=== PATIENT | female | born 1970 | race Caucasian/White ===

== ENCOUNTER 2016-09-09 15:21 | Inpatient (IN) | payer OTHER ==
[2016-09-09] MEDS: NORMAL SALINE 10 ML SYRINGE FLUSH IVP PRN ×2 (15:15→16:00)
[2016-09-09 15:43] LABS: BASOPHILS # (AUTO) 0.14 10*3/UL; BASOPHILS % (AUTO) 1.3 % (0-1); BILIRUBIN,URINE NEGATIVE (NEG); CLARITY,URINE CLEAR (CLEAR); EOSINOPHILS % (AUTO) 6.6 % (0-8); GLUCOSE, URINE (UA) NEGATIVE (NEG); HEMATOCRIT 42.3 % (37.0-47.0); HEMOGLOBIN 14.4 g/dL (12.0-16.0); IMM GRAN % (AUTO) 0.8 % (0-5); IMM GRAN# (AUTO) 0.09 10*3/UL; LEUKOCYTE ESTERASE ,URINE SMALL (NEG); LYMPHOCYTES # (AUTO) 3.05 10*3/uL; LYMPHOCYTES % (AUTO) 28.1 % (10-50); MEAN CORPUSCULAR HEMOGLOBIN 29.6 PG (27-31); MEAN PLATELET VOLUME 10.5 FL (7.4-12.2); MONOCYTES # (AUTO) 0.66 10*3/UL (0.3-0.8); MONOCYTES % (AUTO) 6.1 % (5-15); NEUTROPHILS # (AUTO) 6.21 10*3/UL; NEUTROPHILS % (AUTO) 57.1 % (50-80); NITRATE,URINE NEGATIVE (NEG); OCCULT BLOOD,URINE NEGATIVE (NEG); PH,URINE 5.5 (5.0-8.5); PROTEIN,URINE NEGATIVE (NEG); RDW COEFFICIENT OF VARIATION 13.6 % (11.5-14.5); RED BLOOD COUNT 4.87 10^6/uL (4.20-5.40); UROBILINOGEN,URINE 0.2 EU/dL (0.2); WHITE BLOOD COUNT 10.87 10^3/uL (4.8-10.8)
[2016-09-09 15:44] LABS: PLATELET MORPHOLOGY COMMENT NORMAL MORPHOLOGY (NORM)
[2016-09-09 15:47] LABS: ASPARTATE AMINO TRANSFERASE 38 IU/L (8-39); BILIRUBIN,TOTAL 0.7 mg/dL (0.3-1.2); BLOOD UREA NITROGEN 8 mg/dL (7-22); CHLORIDE 106 meq/L (98-112); CREATININE 0.8 mg/dL (0.50-1.20); EST GLOMERULAR FILTRATION > 60 (>60 ml/min/1.73m(2)); GLUCOSE 96 mg/dL (78-110); POTASSIUM 3.6 meq/L (3.8-5.2); SODIUM 141 meq/L (135-145); TOTAL PROTEIN 7.5 g/dL (6.1-8.0)
[2016-09-09 15:56] LABS: AMYLASE 84 U/L (30-110)
[2016-09-09] MEDS ORDERED: MORPHINE SULFATE 4 MG/1 ML IVP ONE (15:57)
[2016-09-09] MEDS ORDERED: Sodium Chloride 0.9% 1,000 ML PRIMARY IV ONE (15:57)
[2016-09-09 16:22] LABS: URINE SAMPLE TYPE CLEAN CATCH URINE
[2016-09-09 16:23] LABS: BACTERIA,URINE RARE; SQUAMOUS EPITHELIAL CELL,UR RARE
--- NOTE | 2016-09-09 16:52 | DI ---
History right-sided abdominal pain. Procedure: Examination performed with 75 cc Isovue 300 administered intravenously. Imaging was perfor med from the heart to the pubic symphysis. Findings: Both lung bases are unremarkable. No intra-abdominal free air identified. Heart is not enlarged. Dense calcifications anterior to the left-sided chest wall left breast, image 1/159, partially depicted, benign in appearance Liver unremarkable except for 2 tiny right hepatic lobe cysts. Spleen normal. No retroperitoneal or r etrocrural lymphadenopathy. Pancreas normal. Adrenal glands normal. Both kidneys function without mass stone or obstruction. Gallbladder unremarkable. Prior hysterectomy. Bladder normal. No diverticula seen. Some fecal retention noted in the right side of the colon. Ileocecal valve normal. Small bowel loops show no evidence of dilatation or wall thick ening. Some surgical clips noted in the region of the umbilicus. Regarding the appendix, it contains some air and measures 6 mm in diameter which is top normal. Signi ficantly, there is no periappendiceal wall thickening. Impression: Prior hysterectomy. Some surgical clips noted in the region of the umbilicus Appendix top normal in size without secondary evidence of inflammation. Patient may be monitored for objective evidence of inflammation or considered for repeat study in 24-48 hours. Review image 98/159 . 2 tiny hepatic cysts, no clinical significance. Large calcifications left-sided chest wall--possibly old calcified hematoma or associated prior breas t surgery. No evidence of soft tissue breast mass identified
[2016-09-09] MEDS ORDERED: Ciprofloxacin 400mg (Premix) 400 MG in Dextrose 1 BAG IV ONE (17:52)
[2016-09-09] MEDS ORDERED: HYDROmorphone 2 MG/1 ML IVP ONE (18:02)
[2016-09-09] MEDS ORDERED: CIPROFLOXACIN 400 MG IV ONE (18:03)
[2016-09-09] MEDS ORDERED: DEXTROSE IV ONE (18:04)
--- NOTE | 2016-09-09 18:11 | PDOC ---
History and Physical - History of Present Illness Date and Time of Service: 09/09/2016 Chief Complaint: Right lower quadrant pain History of Present Illness: This is a 45-year-old female who has a one-day history of right lower quadrant abdominal pain patient states that the pain started there. She is able go to work today but the pain is progressively getting worse. She states that is worse pain that she's had in a while. It hurts even to urinate. Patient's white count is at 10.87 with a normal differential. Her remainder of her labs are unremarkable. CT scan showed appendix that is 7 mm with no inflammatory changes around it. There is also some air seen within the appendix. Patient has no nausea vomiting diarrhea or constipation. No hematochezia hematemesis or melena. She denies fevers. Patient has had a bilateral salpingo-oophorectomy and a hysterectomy. Patient is status post TRAM flap because of her breast reconstruction Past Medical History Surgical History: Bilateral mastectomies with immediate reconstruction using TRAM flap. Bilateral salpingo-oophorectomy with hysterectomy Tobacco Use: Never Smoker Substance Use Type: None Medication / Allergies Home Medications: Home Medications Medication Instructions Recorded Confirmed Type Epinephrine [Epipen 2-Tom] 0.3 mg IM ONCE #1 ml 09/20/15 09/09/16 Clinic Dexlansoprazole [Dexilant] 1 tab PO DAILY #90 cap 04/29/16 09/09/16 Clinic Escitalopram Oxalate [Lexapro] 1 tab PO DAILY #30 tab 04/29/16 09/09/16 Clinic Fluticasone/Vilanterol [Breo 1 inh IH QD #1 unit 04/29/16 09/09/16 Clinic Ellipta 200-25 Mcg Inh] Gabapentin 1 cap PO QHS #30 cap 04/29/16 09/09/16 Clinic Montelukast Sodium 1 tab PO DAILY #30 tab 04/29/16 09/09/16 Clinic Triamcinolone Acetonide 1 applic TOPICAL BID PRN #30 gm 07/30/16 09/09/16 Clinic Allergies/Adverse Reactions: Allergies Allergy/AdvReac Type Severity Reaction Status Date / Time Penicillins Allergy Intermediate HIVES Verified 09/09/16 15:31 NSAIDS (Non-Steroidal Allergy Anaphylaxis Verified 09/09/16 15:31 Anti-Inflamma peanut Allergy ITCHING Verified 09/09/16 15:31 promethazine HCl Allergy NOT Verified 09/09/16 15:31 [From Phenergan] APPLICABLE Review of Systems - Review of Systems -: Patient has visual hearing problems. She has no cardiac disease. No respiratory illnesses. Has had the surgeries as stated above. She denies any visual hearing problems. Denies fevers. Denies diarrhea. Nausea vomiting. Denies pain with urination except the right lower quadrant. Review of systems otherwise unremarkable Exam - Vitals Vital Signs: Vital Signs Temperature 97.4 F Temperature Source Temporal Artery Scan Pulse Rate [Pulse Oximeter] 89 Respiratory Rate 18 Blood Pressure [Left Arm] 140/97 Pulse Ox 97 Oxygen Delivery Method Room Air Height 5 ft 2 in Weight 70.307 kg - General General Appearance: POSITIVE: No Acute Distress, Cooperative - Head Head Exam: POSITIVE: Normocephalic, Atraumatic - Eye Eye Exam: POSITIVE: PERRL, EOMI - Respiratory Respiratory Exam: POSITIVE: Breathing Non Labored - GI/Abdominal GI/Abdominal Exam: POSITIVE: Soft, No Masses, Positive for RUQ Pain, No Hepatomegaly, No Splenomegaly - Rectal Rectal Exam: POSITIVE: Deferred Results - Labs CBC and BMP: 09/09/16 15:39 09/09/16 15:39 Labs - Last 24 Hours: Laboratory Results 09/09/16 Range/Units 15:39 WBC 10.87 H (4.8-10.8) 10^3/uL RBC 4.87 (4.20-5.40) 10^6/uL Hgb 14.4 (12.0-16.0) g/dL Hct 42.3 (37.0-47.0) % MCV 86.9 (81-99) FL MCH 29.6 (27-31) PG MCHC 34.0 (33-37) g/dL RDW Std Deviation 42.2 (39-50) fL RDW Coeff of Rosa Elena 13.6 (11.5-14.5) % Plt Count 232 (140-350) 10*3/uL MPV 10.5 (7.4-12.2) FL Immature Gran % (Auto) 0.8 (0-5) % Neut % (Auto) 57.1 (50-80) % Lymph % (Auto) 28.1 (10-50) % Cross % (Auto) 6.1 (5-15) % Eos % (Auto) 6.6 (0-8) % Baso % (Auto) 1.3 H (0-1) % Immature Gran # (Auto) 0.09 10*3/UL Neut # (Auto) 6.21 10*3/UL Lymph # (Auto) 3.05 10*3/uL Cross # (Auto) 0.66 (0.3-0.8) 10*3/UL Eos # (Auto) 0.72 10*3/UL Baso # (Auto) 0.14 10*3/UL WBC Morphology Comment Normal morphology (NORM) Plt Morphology Comment Normal morphology (NORM) RBC Morph Comment Normal morphology (NORM) Sodium 141 (135-145) meq/L Potassium 3.6 L (3.8-5.2) meq/L Chloride 106 (98-112) meq/L Carbon Dioxide 23 (23-33) meq/L Anion Gap 12 (5-20) BUN 8 (7-22) mg/dL Creatinine 0.8 (0.50-1.20) mg/dL Estimated GFR > 60 (>60 ml/min/1.73m(2)) BUN/Creatinine Ratio 10.00 (6-20) Glucose 96 (78-110) mg/dL Calculated Osmolality 289.0 (267-292) mOsm/kg Calcium 9.0 (8.7-10.7) mg/dL Total Bilirubin 0.7 (0.3-1.2) mg/dL AST 38 (8-39) IU/L ALT 39 (9-52) IU/L Alkaline Phosphatase 112 (38-126) IU/L Total Protein 7.5 (6.1-8.0) g/dL Albumin 4.3 (3.5-4.8) g/dL Globulin 3.2 (2.50-4.10) g/dL Albumin/Globulin Ratio 1.30 (1.3-2.0) mg/g Amylase 84 (30-110) U/L Lipase 66 (23-300) IU/L Ur Collection Type Clean catch urine Urine Color Yellow Urine Clarity Clear (CLEAR) Urine pH 5.5 (5.0-8.5) Ur Specific [place] 1.010 (1.005-1.030) Urine Protein Negative (NEG) mg/dl Urine Glucose (UA) Negative (NEG) mg/dL Urine Ketones Negative (NEG) Urine Occult Blood Negative (NEG) Urine Nitrate Negative (NEG) Urine Bilirubin Negative (NEG) Urine Urobilinogen 0.2 (0.2) EU/dL Ur Leukocyte Esterase Small (NEG) Urine RBC 1-3 (NONE) /hpf Urine WBC 2-4 (NONE) Ur Squamous Epith Cells Rare (NONE) Ur Renal Epithelial Cell None (NONE) Urine Crystals None Urine Bacteria Rare (NONE) Urine Casts None (NONE) Urine Mucus None (NONE) Urine Trichomonas None (NONE) Urine Yeast None (NONE) Ur Culture Indicated? Culture not set Assessment and Plan - Patient Problems (1) Appendicitis Current Visit: Yes Status: Acute - Assessment / Plan Additional Assessment/Plan Details: I do believe the patient may have early appendicitis. I talked about the different options of treatment which include antibiotic therapy and surgery. I went over the differential diagnosis with her she understands and. She also understands advantages of each treatment option. Unique to miss Dickey's condition is that she does have mesh in with TRAM flap. If we did surgery and has a early appendicitis and pulling the appendix through the mesh could see bacteria into that mesh. Patient does understand this. But there is also some risk of systemically seeding bacteria into the mesh with nonoperative management. I think the latter is a lower Risk. Patient also was informed that there is only a 1% chance of rupture with treating with antibiotics. Also there is only roughly 30% chance of the needed an appendectomy a later date. Patient and her have considered her options and would like to start out with antibiotic therapy. Because of her severe penicillin allergy we will put her on Cipro and Flagyl. Patient be admitted to the hospital.
[2016-09-09] MEDS ORDERED: ONDANSETRON 4 MG/2 ML VIAL IVP PRN (19:00)
[2016-09-09] MEDS ORDERED: NORMAL SALINE 10 ML SYRINGE FLUSH IVP PRN (19:00)
[2016-09-09] MEDS ORDERED: NALOXONE 0.4 MG/1 ML VIAL IVP PRN (19:00)
[2016-09-09] MEDS: D5-1/2NS 1,000 ML PRIMARY IV SCH (19:50)
[2016-09-09] MEDS: MORPHINE SULFATE 2 MG/1 ML IVP PRN ×2 (20:23→22:35)
[2016-09-09] MEDS: metroNIDAZOLE 500mg (Premix) 500 MG in Premix 1 BAG IV SCH (20:25)
[2016-09-09] MEDS: Ciprofloxacin 400mg (Premix) 400 MG in Dextrose 1 BAG IV SCH (21:45)
[2016-09-09] MEDS ORDERED: Montelukast Tab 10 MG TAB PO SCH (22:15)
[2016-09-10 01:12] VITALS: RESP 16
[2016-09-10] MEDS: MORPHINE SULFATE 2 MG/1 ML IVP PRN ×4 (02:01→09:13)
--- NOTE | 2016-09-10 02:41 | PDOC ---
Abdomen/Flank HPI - General Chief Complaint: Abdomen Pain Stated Complaint: right lower quadrant abdominal pain Date Seen by Provider: 09/09/16 Time Seen by Provider: 15:45 Source: POSITIVE: Patient, Spouse Exam Limitations: POSITIVE: No limitations Nurse's Notes Reviewed & Considered: Yes - History of Present Illness Initial Comments: The patient is a 45 year old female. Around 10 PM last night she began to develop right-sided abdominal pain. She states her pain has been worse since 8 AM this morning. She states she last ate at 11:30 AM and had some chicken noodle soap. She's been nauseated but has not had any vomiting. No known fevers. No melena, hematochezia, hematemesis, dysuria or hematuria. Patient has had a hysterectomy with associated bilateral salpingo-oophorectomy. She has a history of breast cancer and had a breast reconstruction in 2003. She's also had sinus surgery and surgery to her right knee. History of asthma. Body Location Affected: REPORTS: Abdomen Timing: REPORTS: Gradual, Getting Worse Duration: <24 hours (Approximately 17 hours) Severity: Moderate Quality: REPORTS: "Pain" Abdominal Pain Onset Location: REPORTS: RLQ Abdominal Pain Radiation: REPORTS: No radiation Context: REPORTS: None Modifying Factors: improves with: Palpation Associated Symptoms: REPORTS: Denies symptoms, Nausea Similar Symptoms Previously: No Recent Care Received: REPORTS: Denies Any Prior Injuries Related to Current Complaint?: No - Patient Home Medications Home Medications: Home Medications Epinephrine [Epipen 2-Tom] 0.3 mg IM ONCE #1 ml 09/20/15 Dexlansoprazole [Dexilant] 1 tab PO DAILY #90 cap 04/29/16 Escitalopram Oxalate [Lexapro] 1 tab PO DAILY #30 tab 04/29/16 Fluticasone/Vilanterol [Breo Ellipta 200-25 Mcg Inh] 1 inh IH QD #1 unit Gabapentin 1 cap PO QHS #30 cap 04/29/16 Montelukast Sodium 1 tab PO DAILY #30 tab 04/29/16 Triamcinolone Acetonide 1 applic TOPICAL BID PRN #30 gm 07/30/16 - Patient Allergies Allergies/Adverse Reactions: Allergies Allergy/AdvReac Type Severity Reaction Status Date / Time Penicillins Allergy Intermediate HIVES Verified 09/09/16 19:17 NSAIDS (Non-Steroidal Allergy Anaphylaxis Verified 09/09/16 19:17 Anti-Inflamma peanut Allergy ITCHING Verified 09/09/16 19:17 promethazine HCl Allergy NOT Verified 09/09/16 19:17 [From Phenergan] APPLICABLE Past Medical History - heen HEENT History: Denies History Additional HEENT History: Chronic sinus Cardiovascular History: Denies History Respiratory History: Asthma, Other (please comment) Additional Respiratory History: 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 High esphiop numbers Psychiatric History: Denies History History of Sexually Transmitted Diseases: No Female Reproductive History: Hysterectomy Obstetrical History: Denies History Cancer History: Breast Cancer Treatment / Date(s) of Treatment: 2003 Mastectomy and reconstruction In Past Year Been Physically Harmed or Verbally Threatened: No History of MDRO: No History of Other Communicable Diseases: No Tobacco Use: Never Smoker Alcohol Use: None Substance Use Type: None Previous Surgical History: Yes Type / Date of Surgery: LEFT SIDE MASTECTOMYBREAST RECONSTRUCTIONRIGHT KNEE SURGERYTOTAL HYST Anesthesia Reactions: No Malignant Hyperthermia: No Significant Family History: No pertinent family hx Past Medical History Reviewed: Reviewed - No Changes ROS - Limitations ROS Limitations: No Limitations Constitution: REPORTS: Denies Symptoms Cardiovascular: REPORTS: Denies Cardiac Symptoms Respiratory: REPORTS: Denies Resp Symptoms Neurological: REPORTS: Denies Neuro Symptoms Gastrointestinal: REPORTS: Abdominal Pain, Nausea Endocrine: REPORTS: Denies Symptoms Musculoskeletal: REPORTS: Denies MS Symptoms Genitourinary: REPORTS: Denies Symptoms Eyes: REPORTS: Denies Symptoms ENT: REPORTS: Denies Symptoms Skin: REPORTS: Denies Skin Symptoms Lympathic: REPORTS: Denies Lympathic Symptoms Immunologic: POSITIVE: Denies Symptoms Psychiatric: POSITIVE: Denies Psych Symptoms Abdominal/Flank Pain PE - General Appearance General Appearance: POSITIVE: Alert, Cooperative, No Acute Distress, No Evidence of Trauma - Neck Neck: POSITIVE: Normal Inspection, No Apparent Injury - Respiratory Respiratory: POSITIVE: No Respiratory Distress, Breath Sounds Normal, Chest Non- Tender - Cardiovascular Cardiovascular: POSITIVE: Regular Rate and Rhythm, Heart Sounds Normal, Equal Pulses, Strong Pulses Peripheral Pulses: Radial (R): 2+, Radial (L): 2+ - Chest Chest: POSITIVE: Non Tender - Abdomen Abdomen: Soft: (RUQ), (LUQ), (LLQ), Normal Bowel Sounds: (All Quadrants), Denies Tenderness: (RUQ), (LUQ), (LLQ), No Splenomegaly: (All Quadrants), No Hepatomegaly: (All Quadrants), No Guarding: (All Quadrants), No Rebound: (All Quadrants), No Palpable Pulse: (All Quadrants), No Palpabale Mass: (All Quadrants), No Distention: (All Quadrants), No Rigidity: (All Quadrants), Tenderness Noted: (RLQ) Additional Abdominal Details: Abdominal examination shows bowel sounds to be active. Patient has pain on palpation over the right lower quadrant. No masses or organomegaly. Equivocal rebound right lower quadrant. - Back Back: POSITIVE: Normal Inspection - Skin Skin: POSITIVE: Intact, Normal For Race, Warm, Dry, No Rash - Extremities Extremity: Non-Tender: (All Extremities), Normal ROM: (All Extremities), Normal Inspection: (All Extremities) - Neurological Neurological: POSITIVE: Oriented X3, platen builder up Normal As Tested, Motor Normal, Sensation Normal, 5, 6 - Psychological Psychiatric: POSITIVE: Affect Appropriate, Mood Appropriate Images - Complete Complete: 1 - Pain on palpation Abdomen Progress - Results Reviewed by me Xrays/CTs/US Reviewed by me: Yes Discussed with Radiologist: Yes Radiology Findings: CT scan abdomen and pelvis with IV contrast shows some air in the appendix. The appendix measures 6 mm in diameter which is at the upper limits of normal. Lab Results Reviewed: Yes Lab Results:: Laboratory Results 09/09/16 Range/Units 15:39 WBC 10.87 H (4.8-10.8) 10^3/uL RBC 4.87 (4.20-5.40) 10^6/uL Hgb 14.4 (12.0-16.0) g/dL Hct 42.3 (37.0-47.0) % MCV 86.9 (81-99) FL MCH 29.6 (27-31) PG MCHC 34.0 (33-37) g/dL RDW Std Deviation 42.2 (39-50) fL RDW Coeff of Rosa Elena 13.6 (11.5-14.5) % Plt Count 232 (140-350) 10*3/uL MPV 10.5 (7.4-12.2) FL Immature Gran % (Auto) 0.8 (0-5) % Neut % (Auto) 57.1 (50-80) % Lymph % (Auto) 28.1 (10-50) % [place] % (Auto) 6.1 (5-15) % Eos % (Auto) 6.6 (0-8) % Baso % (Auto) 1.3 H (0-1) % Immature Gran # (Auto) 0.09 10*3/UL Neut # (Auto) 6.21 10*3/UL Lymph # (Auto) 3.05 10*3/uL [place] # (Auto) 0.66 (0.3-0.8) 10*3/UL Eos # (Auto) 0.72 10*3/UL Baso # (Auto) 0.14 10*3/UL WBC Morphology Comment Normal morphology (NORM) Plt Morphology Comment Normal morphology (NORM) RBC Morph Comment Normal morphology (NORM) Sodium 141 (135-145) meq/L Potassium 3.6 L (3.8-5.2) meq/L Chloride 106 (98-112) meq/L Carbon Dioxide 23 (23-33) meq/L Anion Gap 12 (5-20) BUN 8 (7-22) mg/dL Creatinine 0.8 (0.50-1.20) mg/dL Estimated GFR > 60 (>60 ml/min/1.73m(2)) BUN/Creatinine Ratio 10.00 (6-20) Glucose 96 (78-110) mg/dL Calculated Osmolality 289.0 (267-292) mOsm/kg Calcium 9.0 (8.7-10.7) mg/dL Total Bilirubin 0.7 (0.3-1.2) mg/dL AST 38 (8-39) IU/L ALT 39 (9-52) IU/L Alkaline Phosphatase 112 (38-126) IU/L Total Protein 7.5 (6.1-8.0) g/dL Albumin 4.3 (3.5-4.8) g/dL Globulin 3.2 (2.50-4.10) g/dL Albumin/Globulin Ratio 1.30 (1.3-2.0) mg/g Amylase 84 (30-110) U/L Lipase 66 (23-300) IU/L Ur Collection Type Clean catch urine Urine Color Yellow Urine Clarity Clear (CLEAR) Urine pH 5.5 (5.0-8.5) Ur Specific [place] 1.010 (1.005-1.030) Urine Protein Negative (NEG) mg/dl Urine Glucose (UA) Negative (NEG) mg/dL Urine Ketones Negative (NEG) Urine Occult Blood Negative (NEG) Urine Nitrate Negative (NEG) Urine Bilirubin Negative (NEG) Urine Urobilinogen 0.2 (0.2) EU/dL Ur Leukocyte Esterase Small (NEG) Urine RBC 1-3 (NONE) /hpf Urine WBC 2-4 (NONE) Ur Squamous Epith Cells Rare (NONE) Ur Renal Epithelial Cell None (NONE) Urine Crystals None Urine Bacteria Rare (NONE) Urine Casts None (NONE) Urine Mucus None (NONE) Urine Trichomonas None (NONE) Urine Yeast None (NONE) Ur Culture Indicated? Culture not set - Patient's Progress Pain Medication Addressed: POSITIVE: Yes (Morphine sulfate, 4 mg IV) School/Work Release Addressed: POSITIVE: Not Applicable Re-examine Time: 17:10 Status: POSITIVE: Unchanged, Re-Examined - Consult Consult (If Yes, Name of Consulting MD & Time Called): Yes (Dr. Maguire, surgeon, [id number]) Consulting MD will see pt:: POSITIVE: In ED, [facility] [place]mit Counseled: POSITIVE: Patient, Family, RE: Lab Results, RE: Radiology Results, RE : DX, RE: Need for F/U Patient Care Time - Estimated PCT Patient Care Time (In Minutes): 50 Vital Signs - Recent Vital Signs Vital Signs: Vital Signs (Last 8 hours) Temp Pulse Pulse Resp BP BP Pulse Ox 09/10/16 01:00 97.3 F 73 16 105/70 98 09/09/16 21:00 97.8 F 79 18 122/85 98 09/09/16 19:41 97.2 F 75 16 144/100 98 09/09/16 19:00 16 09/09/16 18:55 97.7 F 80 20 140/97 97 - VS Reviewed Vital Signs Reviewed: Yes Discharge Clinical Impression: Abdominal pain Discharge Disposition: Admit to Inpatient Condition: Stable Date Decision to Admit to Inpatient: 09/09/16 Time Decision to Admit to Inpatient: 17:15
[2016-09-10] MEDS: metroNIDAZOLE 500mg (Premix) 500 MG in Premix 1 BAG IV SCH (03:08)
[2016-09-10 05:55] LABS: BASOPHILS # (AUTO) 0.06 10*3/UL; BASOPHILS % (AUTO) 0.6 % (0-1); EOSINOPHILS % (AUTO) 4.4 % (0-8); HEMATOCRIT 39.4 % (37.0-47.0); IMM GRAN % (AUTO) 0.6 % (0-5); IMM GRAN# (AUTO) 0.06 10*3/UL; LYMPHOCYTES # (AUTO) 2.37 10*3/uL; LYMPHOCYTES % (AUTO) 25.1 % (10-50); MEAN CORPUSCULAR HEMOGLOBIN 29.1 PG (27-31); MEAN PLATELET VOLUME 10.2 FL (7.4-12.2); MONOCYTES # (AUTO) 0.54 10*3/UL (0.3-0.8); MONOCYTES % (AUTO) 5.7 % (5-15); NEUTROPHILS # (AUTO) 6.01 10*3/UL; NEUTROPHILS % (AUTO) 63.6 % (50-80); RDW COEFFICIENT OF VARIATION 13.4 % (11.5-14.5); RED BLOOD COUNT 4.46 10^6/uL (4.20-5.40); WHITE BLOOD COUNT 9.46 10^3/uL (4.8-10.8)
[2016-09-10 05:57] LABS: PLATELET MORPHOLOGY COMMENT NORMAL MORPHOLOGY (NORM)
[2016-09-10 06:01] LABS: BLOOD UREA NITROGEN 8 mg/dL (7-22); CALCIUM 8.4 mg/dL (8.7-10.7); CHLORIDE 107 meq/L (98-112); CREATININE 0.8 mg/dL (0.50-1.20); EST GLOMERULAR FILTRATION > 60 (>60 ml/min/1.73m(2)); GLUCOSE 124 mg/dL (78-110); SODIUM 141 meq/L (135-145)
[2016-09-10 06:17] LABS: POTASSIUM 3.8 meq/L (3.8-5.2)
[2016-09-10] MEDS: Ciprofloxacin 400mg (Premix) 400 MG in Dextrose 1 BAG IV SCH (07:01)
[2016-09-10 07:05] VITALS: TEMP 97.4
[2016-09-10] MEDS: D5-1/2NS 1,000 ML PRIMARY IV SCH (09:13)
--- NOTE | 2016-09-10 10:54 | DCSUMMARY ---
Discharge Summary Admit Date: 09/09/16 Discharge Date: 09/10/16 Admitting Diagnosis: right lower quadrant abdominal pain; acute appendicitis Discharge Diagnosis: #1 right lower quadrant abdominal pain. #2 appendicitis Hospital Course: This is a 42-year-old female comes in with acute onset of right lower quadrant abdominal pain. Pain is progressively got more severe. Patient remained afebrile. Patient's white count initially was only 10.87 CT scan showed no comparison appendiceal inflammatory condition appendix is only 6 mm. He was felt that the dosages the patient was treated with antibiotics versus doing surgery. She was started on Cipro and Flagyl. Next morning after 1 dose of her antibiotics white count was very back down to the 9.8 range. She states that the pain was actually getting better. She remained afebrile. This fell she can be discharged to home. She'll be on Cipro and Flagyl for 10 days. She is to hold her Lexapro since it can cause an adverse reaction with Cipro. Condition on discharge is improved Exam - Vitals Vital Signs: Vital Signs Temperature 97.4 F Temperature Source Temporal Artery Scan Pulse Rate [Pulse Oximeter] 66 Pulse Rate 80 Respiratory Rate 16 Blood Pressure [Left Arm] 103/68 Blood Pressure 140/97 Pulse Ox 95 Oxygen Flow Rate 2 Oxygen Delivery Method Room Air Height 5 ft 2 in Weight 72.802 kg - Respiratory Respiratory Exam: POSITIVE: Breathing Non Labored - GI/Abdominal GI/Abdominal Exam: POSITIVE: Non Distended, Soft, Positive for RUQ Pain Patient Problems - Patient Problem List (1) Appendicitis Current Visit: Yes Status: Acute
[2016-09-10] MEDS ORDERED: Montelukast Tab 10 MG TAB PO SCH (21:00)
== END 2016-09-10 12:04 | disposition home or self-care (01) | DRG 395 ==
LOC: ER 15:21 → MED/SURG 17:59
PROVIDERS: ADMIT Surgery; ATTEND Surgery
DX: K35.80 Unspecified acute appendicitis (principal)
CPT/HCPCS: 36415; 74177; 80048; 80053; 81001; 81003; 82150; 83690; 85025; 96361; 96374; 99284; J0744; J1170; J2270; J2405; J3490; J7030

== ENCOUNTER 2016-12-23 23:42 | Emergency (ER) | payer OTHER ==
[2016-12-23] MEDS ORDERED: EPINEPHrine Inj (1:1,000) 1 mg/ml amp IM ONE (23:48)
[2016-12-23] MEDS ORDERED: Famotidine Inj 20 MG in Normal Saline Flush 10 ML IVP ONE (23:48)
[2016-12-23] MEDS ORDERED: NORMAL SALINE 10 ML SYRINGE FLUSH IVP PRN (23:48)
[2016-12-23] MEDS ORDERED: methylPREDNISolone 125 MG/2 ML VIAL IVP ONE (23:48)
[2016-12-23] MEDS ORDERED: diphenhydrAMINE 50 MG/1 ML VIAL IVP ONE (23:48)
[2016-12-23] MEDS ORDERED: EPINEPHrine Inj (1:1,000) 1 mg/ml amp ONE (23:48)
[2016-12-23] MEDS ORDERED: Sodium Chloride 0.9% 1,000 ML PRIMARY IV ONE (23:48)
[2016-12-23] MEDS ORDERED: methylPREDNISolone 125 MG/2 ML VIAL ONE (23:50)
[2016-12-23] MEDS ORDERED: FAMOTIDINE 20 MG/2 ML VIAL IVP ONE (23:50)
[2016-12-23] MEDS ORDERED: diphenhydrAMINE 50 MG/1 ML VIAL ONE (23:50)
[2016-12-23] MEDS ORDERED: Sodium Chloride 0.9% 0 ML IV ONE (23:50)
[2016-12-23] MEDS ORDERED: Sodium Chloride 0.9% 1,000 ML ONE (23:50)
[2016-12-23 23:54] LABS: BASOPHILS # (AUTO) 0.12 10*3/UL; BASOPHILS % (AUTO) 0.8 % (0-1); EOSINOPHILS # (AUTO) 0.76 10*3/UL; EOSINOPHILS % (AUTO) 5.3 % (0-8); HEMATOCRIT 42.9 % (37.0-47.0); HEMOGLOBIN 14.8 g/dL (12.0-16.0); LYMPHOCYTES # (AUTO) 5.29 10*3/uL; MEAN CORPUSCULAR HEMOGLOBIN 29.7 PG (27-31); MEAN CORPUSCULAR HGB CONC 34.5 g/dL (33-37); MEAN CORPUSCULAR VOLUME 86.1 FL (81-99); MEAN PLATELET VOLUME 10.1 FL (7.4-12.2); MONOCYTES # (AUTO) 0.89 10*3/UL (0.3-0.8); MONOCYTES % (AUTO) 6.2 % (5-15); NEUTROPHILS # (AUTO) 7.05 10*3/UL; NEUTROPHILS % (AUTO) 49.6 % (50-80); RED BLOOD COUNT 4.98 10^6/uL (4.20-5.40)
[2016-12-23 23:57] LABS: PLATELET MORPHOLOGY COMMENT NORMAL MORPHOLOGY (NORM); RBC MORPHOLOGY COMMENT NORMAL MORPHOLOGY (NORM); WBC MORPHOLOGY COMMENT NORMAL MORPHOLOGY (NORM)
[2016-12-24 00:08] LABS: BLOOD UREA NITROGEN 13 mg/dL (7-22); BUN/CREATININE RATIO 16.25 (6-20); CALCIUM 9.1 mg/dL (8.7-10.7); EST GLOMERULAR FILTRATION > 60 (>60 ml/min/1.73m(2)); SERUM ALBUMIN 4.1 g/dL (3.5-4.8)
--- NOTE | 2016-12-24 00:20 | PDOC ---
Allergy Symptoms HPI - General Chief Complaint: Allergic Reaction/Anaphylaxis Stated Complaint: ALLERGIC REACTION Date Seen by Provider: 12/23/16 Time Seen by Provider: 23:45 Source: POSITIVE: Patient Exam Limitations: POSITIVE: No limitations Nurse's Notes Reviewed & Considered: Yes - History of Present Illness Initial Comments: The patient is a 46-year-old female who presents to the emergency department with an allergic reaction. She states that she was at home and had gotten out of the shower when she had sudden onset of burning in her skin and swelling on her lips and tongue. She states that her throat felt tight almost immediately. She does have a history of significant allergic reactions and anaphylaxis. Her main known trigger is NSAIDs and aspirin although she has had reactions in the past of unclear etiology. She denies any new foods or medications or any new soap. She does have an EpiPen at home and used it just prior to coming to the ER. She states that her symptoms are easing slightly however she still has some swelling of her lips and tongue and some tightness in her throat as well as generalized itching and swelling. She has considerable swelling in her hands. - Patient Home Medications Home Medications: Home Medications Epinephrine [Epipen 2-Tom] 0.3 mg IM ONCE #1 ml 09/20/15 Gabapentin 1 cap PO QHS #30 cap 04/29/16 Triamcinolone Acetonide 1 applic TOPICAL BID PRN #30 gm 07/30/16 Dexlansoprazole [Dexilant] 1 tab PO DAILY #90 cap 12/01/16 Escitalopram Oxalate [Lexapro] 1 tab PO DAILY #30 tab 12/01/16 Fluticasone Propionate 2 spray NS QD 12/01/16 Fluticasone/Vilanterol [Breo Ellipta 200-25 Mcg Inh] 1 inh IH QD #1 unit Montelukast Sodium 1 tab PO DAILY #30 tab 12/01/16 Epinephrine [Epipen 2-Tom] 0.3 mg IJ ONCE #1 pkg 12/24/16 predniSONE Tab [Deltasone Tab] 40 mg PO DAILY #10 tab 12/24/16 - Patient Allergies Allergies/Adverse Reactions: Allergies Allergy/AdvReac Type Severity Reaction Status Date / Time Penicillins Allergy Intermediate HIVES Verified 12/24/16 00:14 NSAIDS (Non-Steroidal Allergy Anaphylaxis Verified 12/24/16 00:14 Anti-Inflamma peanut Allergy ITCHING Verified 12/24/16 00:14 promethazine HCl Allergy NOT Verified 12/24/16 00:14 [From Phenergan] APPLICABLE Past Medical History - heen HEENT History: Denies History Additional HEENT History: Chronic sinus Cardiovascular History: Denies History Respiratory History: Asthma, Other (please comment) 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 High esphiop numbers Psychiatric History: Denies History History of Sexually Transmitted Diseases: No Cancer History: Breast Cancer Treatment / Date(s) of Treatment: 2003 Mastectomy and reconstruction History of MDRO: No History of Other Communicable Diseases: No Alcohol Use: None Substance Use Type: None Previous Surgical History: Yes Type / Date of Surgery: LEFT SIDE MASTECTOMYBREAST RECONSTRUCTIONRIGHT KNEE SURGERYTOTAL HYST Anesthesia Reactions: No Malignant Hyperthermia: No Significant Family History: No pertinent family hx Past Medical History Reviewed: Reviewed - No Changes ROS - Limitations ROS Limitations: No Limitations Constitution: DENIES: Chills, Fever Cardiovascular: REPORTS: Denies Cardiac Symptoms Respiratory: DENIES: Shortness Of Breath, Wheezing Neurological: REPORTS: Denies Neuro Symptoms Gastrointestinal: REPORTS: Denies GI Symptoms Musculoskeletal: REPORTS: Denies MS Symptoms Eyes: REPORTS: Denies Symptoms ENT: REPORTS: Denies Symptoms Skin: REPORTS: Rash (Generalized itching and erythema) Allergy Symptoms Physical Exam - General Appearance General Appearance: POSITIVE: Alert, Cooperative, No Acute Distress, Anxious - HEENT Head / Face: POSITIVE: Other (She does have swelling of her lips as well as some periorbital swelling, she has diffuse erythema on her entire face and neck) Eyes: POSITIVE: Other (Some periorbital swelling) Ears: POSITIVE: Ears Normal Inspection Nose: POSITIVE: Inspection Normal Oropharynx: POSITIVE: Other (She does have some swelling of both her upper and lower lips as well as her tongue) - Neck Neck: POSITIVE: Other (Generalized erythema on her neck) - Respiratory Respiratory: POSITIVE: No Respiratory Distress, Breath Sounds Normal. NEGATIVE : Wheezes - Cardiovascular Cardiovascular: POSITIVE: Regular Rate and Rhythm, Heart Sounds Normal Peripheral Pulses: Radial (R): 2+, Radial (L): 2+ - Abdomen Abdomen: Soft: (All Quadrants), No Distention: (All Quadrants) - Skin Skin: POSITIVE: Other (She has diffuse erythema on her extremities, swelling is fairly significant in her hands) - Extremities Additional Extremities Details: Significant hand swelling - Neurological / Psychological Neurological: POSITIVE: Other (No focal neurologic deficits) Allergy Symptoms Progress - Results Reviewed by Me Lab Results Reviewed: Yes Lab Results:: Laboratory Results 12/23/16 Range/Units 23:50 WBC 14.25 H (4.8-10.8) 10^3/uL RBC 4.98 (4.20-5.40) 10^6/uL Hgb 14.8 (12.0-16.0) g/dL Hct 42.9 (37.0-47.0) % MCV 86.1 (81-99) FL MCH 29.7 (27-31) PG MCHC 34.5 (33-37) g/dL RDW Std Deviation 42.7 (39-50) fL RDW Coeff of Rosa Elena 13.7 (11.5-14.5) % Plt Count 242 (140-350) 10*3/uL MPV 10.1 (7.4-12.2) FL Immature Gran % (Auto) 1.0 (0-5) % Neut % (Auto) 49.6 L (50-80) % Lymph % (Auto) 37.1 (10-50) % [place] % (Auto) 6.2 (5-15) % Eos % (Auto) 5.3 (0-8) % Baso % (Auto) 0.8 (0-1) % Immature Gran # (Auto) 0.14 10*3/UL Neut # (Auto) 7.05 10*3/UL Lymph # (Auto) 5.29 10*3/uL [place] # (Auto) 0.89 H (0.3-0.8) 10*3/UL Eos # (Auto) 0.76 10*3/UL Baso # (Auto) 0.12 10*3/UL WBC Morphology Comment Normal morphology (NORM) Plt Morphology Comment Normal morphology (NORM) RBC Morph Comment Normal morphology (NORM) Sodium 141 (135-145) meq/L Potassium 3.9 (3.8-5.2) meq/L Chloride 107 (98-112) meq/L Carbon Dioxide 18 L (23-33) meq/L Anion Gap 16 (5-20) BUN 13 (7-22) mg/dL Creatinine 0.8 (0.50-1.20) mg/dL Estimated GFR > 60 (>60 ml/min/1.73m(2)) BUN/Creatinine Ratio 16.25 (6-20) Glucose 141 H (78-110) mg/dL Calculated Osmolality 293.0 H (267-292) mOsm/kg Calcium 9.1 (8.7-10.7) mg/dL Total Bilirubin 0.7 (0.3-1.2) mg/dL AST 27 (8-39) IU/L ALT 37 (9-52) IU/L Alkaline Phosphatase 108 (38-126) IU/L Total Protein 7.1 (6.1-8.0) g/dL Albumin 4.1 (3.5-4.8) g/dL Globulin 3.0 (2.50-4.10) g/dL Albumin/Globulin Ratio 1.30 (1.3-2.0) mg/g - Patient's Progress MDM / ED Course: The patient had already given herself an adult EpiPen prior to coming to the emergency room. She still is having significant allergic reaction here in the ER. She received a second dose of epinephrine 0.3 mg IM after an IV was established. She also received Benadryl 50 mg IV and Pepcid 20 mg IV and Solu- Medrol 125 mg IV. Her allergic reaction settled down fairly quickly. The erythema on her skin dissipated and the swelling on her lips and tongue resolved. She was feeling significantly better. She'll be discharged home on prednisone 40 mg daily for 5 days. She will continue Benadryl. She was also given a prescription to get her EpiPen refilled. She'll follow-up with primary care if continued symptoms in 2-3 days. Return to the emergency room if any worsening reaction or difficulty breathing. - Consult Counseled: POSITIVE: Patient, RE: Lab Results, RE: DX, RE: Need for F/U Patient Care Time - Estimated PCT Patient Care Time (In Minutes): 25 Vital Signs - Recent Vital Signs Vital Signs: Vital Signs (Last 8 hours) Temp Pulse Resp BP Pulse Ox 12/23/16 23:45 97.2 F 105 H 24 148/107 95 - VS Reviewed Vital Signs Reviewed: Yes Discharge Clinical Impression: Allergic reaction Discharge Disposition: Discharged to Home Condition: Stable Prescriptions / Orders: predniSONE Tab [Deltasone Tab] 40 mg PO DAILY #10 tab Epinephrine [Epipen 2-Tom] 0.3 mg IJ ONCE #1 pkg Patient Instructions Given at Discharge: Anaphylaxis (ED) Additional Instructions: Prednisone 40 mg daily for 5 days. Continue Benadryl 25-50 mg every 4-6 hours as needed for itching or swelling. Continue EpiPen as needed for severe reactions. Return to the emergency room if any worsening or change in symptoms. Follow-up with primary care if continued symptoms in 2-3 days. Follow Up With: RUIZ JOHNSON [Primary Care Provider] -
[2016-12-24 00:44] VITALS: TEMP 97.2
[2016-12-24 00:59] VITALS: RESP 20
== END 2016-12-24 00:55 | disposition home or self-care (01) ==
LOC: ER 23:42
DX: T78.49XA Other allergy, initial encounter (principal); R22.33 Localized swelling, mass and lump, upper limb, bilateral
CPT/HCPCS: 36415; 80053; 85025; 96372; 96374; 96375; 99283 ×2; J1200; J2930; J7030; J7050

== ENCOUNTER 2017-01-14 14:19 | Emergency (ER) | payer OTHER ==
[2017-01-14] MEDS ORDERED: Sodium Chloride 0.9% 1,000 ML PRIMARY IV ONE (14:30)
[2017-01-14] MEDS ORDERED: MECLIZINE 25 MG CHEWABLE TABLET PO ONE (14:30)
[2017-01-14] MEDS ORDERED: ONDANSETRON 4 MG/2 ML VIAL IVP ONE (14:30)
[2017-01-14 14:34] VITALS: RESP 18; TEMP 96.4
--- NOTE | 2017-01-14 14:36 | PDOC ---
Dizziness HPI - General Chief Complaint: Neurological Complaints Stated Complaint: dizziness worsening after fall out of truck Date Seen by Provider: 01/14/17 Time Seen by Provider: 14:31 Source: POSITIVE: Patient Exam Limitations: POSITIVE: No limitations Nurse's Notes Reviewed & Considered: Yes - History of Present Illness Initial Comments: Patient comes in today with chief complaint of dizziness. Patient with ongoing dizziness that has been several months in duration. It is acutely worse over the last 48 hours after she fell in the back of her truck landing on her buttocks. She denies having hit her head or any loss of consciousness. 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 The dizziness is worse when she moves her head or her eyes. It is better when she lies still. She denies any fever chills or sweats, no nausea vomiting or diarrhea, no chest pain or shortness of breath, no headache. Body Location Affected: REPORTS: Head Timing: REPORTS: Constant, Getting Worse Duration: Unknown Severity: Moderate Context: REPORTS: Fall, Body Position Changes Quality: REPORTS: Other (Dizziness) Associated Symptoms: REPORTS: With Position Change (Moving her head makes symptoms worse) Current Ability to Walk/Stand: REPORTS: Walks w/o Assistance Usual Ability to Walk/Stand: REPORTS: Walks w/o Assistance Aggrevated by: REPORTS: Position Changes, Movement of Head Similar Symptoms Previously: Yes Recently seen/treated/hospitalized: No Any Prior Injuries Related to Current Complaint?: No - Patient Home Medications Home Medications: Home Medications Epinephrine [Epipen 2-Tom] 0.3 mg IM ONCE #1 ml 09/20/15 Escitalopram Oxalate [Lexapro] 1 tab PO DAILY #30 tab 12/01/16 Fluticasone Propionate 2 spray NS QD 12/01/16 Fluticasone/Vilanterol [Breo Ellipta 200-25 Mcg Inh] 1 inh IH QD #1 unit Montelukast Sodium 1 tab PO DAILY #30 tab 12/01/16 - Patient Allergies Allergies/Adverse Reactions: Allergies Allergy/AdvReac Type Severity Reaction Status Date / Time Penicillins Allergy Intermediate HIVES Verified 01/14/17 14:21 NSAIDS (Non-Steroidal Allergy Anaphylaxis Verified 01/14/17 14:21 Anti-Inflamma peanut Allergy ITCHING Verified 01/14/17 14:21 promethazine HCl Allergy NOT Verified 01/14/17 14:21 [From Phenergan] APPLICABLE Past Medical History - heen HEENT History: Denies History Additional HEENT History: Chronic sinus Cardiovascular History: Denies History Respiratory History: Asthma, Other (please comment) Additional Respiratory History: 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 High esphiop numbers Psychiatric History: Denies History History of Sexually Transmitted Diseases: No Cancer History: Breast Cancer Treatment / Date(s) of Treatment: 2003 Mastectomy and reconstruction History of MDRO: No History of Other Communicable Diseases: No Alcohol Use: None Substance Use Type: None Previous Surgical History: Yes Type / Date of Surgery: LEFT SIDE MASTECTOMYBREAST RECONSTRUCTIONRIGHT KNEE SURGERYTOTAL HYST Anesthesia Reactions: No Malignant Hyperthermia: No Significant Family History: No pertinent family hx ROS - Limitations ROS Limitations: No Limitations Constitution: REPORTS: Denies Symptoms Cardiovascular: REPORTS: Denies Cardiac Symptoms Respiratory: REPORTS: Denies Resp Symptoms Neurological: REPORTS: Dizziness Gastrointestinal: REPORTS: Denies GI Symptoms Endocrine: REPORTS: Denies Symptoms Musculoskeletal: REPORTS: Denies MS Symptoms Genitourinary: REPORTS: Denies Symptoms Eyes: REPORTS: Denies Symptoms ENT: REPORTS: Denies Symptoms Skin: REPORTS: Denies Skin Symptoms Lympathic: REPORTS: Denies Lympathic Symptoms Immunologic: POSITIVE: Denies Symptoms Psychiatric: POSITIVE: Denies Psych Symptoms Dizziness PE - General Appearance General Appearance: POSITIVE: Alert, Mild Distress - HEENT HEENT: POSITIVE: Head Inspection Nml, Eyes Inspection Nml, Ears Inspection Nml, Nose Inspection Nml, Oral/Dental Inspect. Nml, Pharynx Inspect. Nml, PERRL, EOMI - Pupil Size Pupil Size: 4 mm: Bilateral - Neck Neck: POSITIVE: Supple - Respiratory Respiratory: POSITIVE: No Respiratory Distress, Breath Sounds Normal - Cardiovascular Cardiovascular: POSITIVE: Regular Rate & Rhythm, No Murmur, No Gallop, Heart Sounds Normal - Abdomen Abdomen: Soft: (All Quadrants), Normal Bowel Sounds: (All Quadrants), Denies Tenderness: (All Quadrants) - Skin Skin: POSITIVE: Intact, Normal For Race, Warm, Dry, No Rash - Extremities Extremity: Non-Tender: (All Extremities), Normal ROM: (All Extremities), Normal Inspection: (All Extremities), Pelvis Stable: (All Extremities) - Neuro/Psych Neuro/Psych: POSITIVE: Alert, Affect Appropriate, Mood Appropriate, Normal Speech, Normal Cognition Cranial Nerves: POSITIVE: Normal As Tested, No Evidence of Acute CVA Cerebellar: POSITIVE: Normal As Tested Sensorimotor: POSITIVE: No Motor Deficits, No Sensory Deficits, Reflexes Normal Reflexes: Patellar (R): 4+, Patellar (L): 4+, Radial (R): 4+, Radial (L): 4+ Dizziness Progress - Results Reviewed by me Xrays/CTs/US Reviewed by me: Yes Discussed with Radiologist: Yes Lab Results Reviewed: Yes Lab Results:: Laboratory Results 01/14/17 01/14/17 Range/Units 14:30 14:37 WBC 9.76 (4.8-10.8) 10^3/uL RBC 5.05 (4.20-5.40) 10^6/uL Hgb 15.0 (12.0-16.0) g/dL Hct 44.4 (37.0-47.0) % MCV 87.9 (81-99) FL MCH 29.7 (27-31) PG MCHC 33.8 (33-37) g/dL RDW Std Deviation 44.0 (39-50) fL RDW Coeff of Rosa Elena 13.9 (11.5-14.5) % Plt Count 244 (140-350) 10*3/uL MPV 10.6 (7.4-12.2) FL Immature Gran % (Auto) 1.0 (0-5) % Neut % (Auto) 55.6 (50-80) % Lymph % (Auto) 29.9 (10-50) % [place] % (Auto) 6.0 (5-15) % Eos % (Auto) 5.2 (0-8) % Baso % (Auto) 2.3 H (0-1) % Immature Gran # (Auto) 0.10 10*3/UL Neut # (Auto) 5.42 10*3/UL Lymph # (Auto) 2.92 10*3/uL [place] # (Auto) 0.59 (0.3-0.8) 10*3/UL Eos # (Auto) 0.51 10*3/UL Baso # (Auto) 0.22 10*3/UL WBC Morphology Comment Normal morphology (NORM) Plt Morphology Comment Normal morphology (NORM) RBC Morph Comment Normal morphology (NORM) Sodium 143 (135-145) meq/L Potassium 4.3 (3.8-5.2) meq/L Chloride 107 (98-112) meq/L Carbon Dioxide 25 (23-33) meq/L Anion Gap 11 (5-20) BUN 10 (7-22) mg/dL Creatinine 0.8 (0.50-1.20) mg/dL Estimated GFR > 60 (>60 ml/min/1.73m(2)) BUN/Creatinine Ratio 12.50 (6-20) Glucose 85 (78-110) mg/dL Calculated Osmolality 293.0 H (267-292) mOsm/kg Calcium 9.2 (8.7-10.7) mg/dL Magnesium 2.0 (1.6-2.4) mg/dL Total Bilirubin 0.9 (0.3-1.2) mg/dL AST 47 H (8-39) IU/L ALT 36 (9-52) IU/L Alkaline Phosphatase 105 (38-126) IU/L C-Reactive Protein 0.7 (0.0-0.9) mg/dL Total Protein 7.9 (6.1-8.0) g/dL Albumin 4.3 (3.5-4.8) g/dL Globulin 3.6 (2.50-4.10) g/dL Albumin/Globulin Ratio 1.10 L (1.3-2.0) mg/g TSH 2.24 (0.2700-4.2000) uIU/mL Ur Collection Type Clean catch urine Urine Color Yellow Urine Clarity Clear (CLEAR) Urine pH 7.0 (5.0-8.5) Ur Specific [place] <=1.005 (1.005-1.030) Urine Protein Negative (NEG) mg/dl Urine Glucose (UA) Negative (NEG) mg/dL Urine Ketones Negative (NEG) Urine Occult Blood Negative (NEG) Urine Nitrate Negative (NEG) Urine Bilirubin Negative (NEG) Urine Urobilinogen 0.2 (0.2) EU/dL Ur Leukocyte Esterase Negative (NEG) Ur Culture Indicated? Culture not set - Patient's Progress Pain Medication Addressed: POSITIVE: Not Applicable Re-Examine Time:: 18:21 Status: POSITIVE: Improved MDM / ED Course: Patient was examined, an IV started, blood drawn and sent to the lab for studies , radiographic examinations were obtained. Patient received oral meclizine, a liter of normal saline, and Zofran. Her symptoms significantly improved. Laboratory findings: CBC is within normal limits, comprehensive metabolic panel is unremarkable, TSH is normal. Radiographic examinations reveal negative MRI of the brain. There is noted to be sinusitis present. Assessment: Dizziness. Sinusitis. Next Plan: Discharge home, high-dose amoxicillin for 21 days to be taken 500 mg 2 tablets by mouth 3 times a day. [id number] Zyrtec or Mucinex. Follow-up with primary care physician. CVA/Syncope Quality Measure Initiative: POSITIVE: NIH Stroke Scale (is zero.) - Consult Counseled: POSITIVE: Patient, Family, RE: Lab Results, RE: Radiology Results, RE : DX, RE: Need for F/U Patient Care Time - Estimated PCT Patient Care Time (In Minutes): 45 Vital Signs - Recent Vital Signs Vital Signs: Vital Signs (Last 8 hours) Temp Pulse Resp BP Pulse Ox 01/14/17 14:20 96.4 F L 87 18 165/99 98 - VS Reviewed Vital Signs Reviewed: Yes Discharge Clinical Impression: Dizziness, Sinusitis Discharge Disposition: Discharged to Home Condition: Stable Patient Instructions Given at Discharge: Sinusitis (ED), Dizziness (ED)
[2017-01-14 14:41] LABS: BASOPHILS # (AUTO) 0.22 10*3/UL; BASOPHILS % (AUTO) 2.3 % (0-1); EOSINOPHILS # (AUTO) 0.51 10*3/UL; EOSINOPHILS % (AUTO) 5.2 % (0-8); HEMATOCRIT 44.4 % (37.0-47.0); LYMPHOCYTES # (AUTO) 2.92 10*3/uL; MEAN CORPUSCULAR HEMOGLOBIN 29.7 PG (27-31); MEAN CORPUSCULAR HGB CONC 33.8 g/dL (33-37); MEAN CORPUSCULAR VOLUME 87.9 FL (81-99); MEAN PLATELET VOLUME 10.6 FL (7.4-12.2); MONOCYTES # (AUTO) 0.59 10*3/UL (0.3-0.8); NEUTROPHILS # (AUTO) 5.42 10*3/UL; NEUTROPHILS % (AUTO) 55.6 % (50-80); RED BLOOD COUNT 5.05 10^6/uL (4.20-5.40)
[2017-01-14 14:46] LABS: PLATELET MORPHOLOGY COMMENT NORMAL MORPHOLOGY (NORM); RBC MORPHOLOGY COMMENT NORMAL MORPHOLOGY (NORM); WBC MORPHOLOGY COMMENT NORMAL MORPHOLOGY (NORM)
[2017-01-14 14:49] LABS: BLOOD UREA NITROGEN 10 mg/dL (7-22); C-REACTIVE PROTEIN 0.7 mg/dL (0.0-0.9); CALCIUM 9.2 mg/dL (8.7-10.7); EST GLOMERULAR FILTRATION > 60 (>60 ml/min/1.73m(2)); SERUM ALBUMIN 4.3 g/dL (3.5-4.8)
[2017-01-14 16:51] LABS: BILIRUBIN,URINE NEGATIVE (NEG); COLOR,URINE YELLOW; GLUCOSE, URINE (UA) NEGATIVE (NEG); NITRATE,URINE NEGATIVE (NEG); OCCULT BLOOD,URINE NEGATIVE (NEG); PROTEIN,URINE NEGATIVE (NEG); UROBILINOGEN,URINE 0.2 EU/dL (0.2)
[2017-01-14 16:54] LABS: CLARITY,URINE CLEAR (CLEAR)
[2017-01-14 16:55] LABS: URINE SAMPLE TYPE CLEAN CATCH URINE
--- NOTE | 2017-01-14 17:48 | DI ---
MRI BRAIN W/WO OSEAS,01/14/2017 2:37 PM: Clinical History: Dizziness Previous Exam: None at this facility. Findings: Multiplanar MR images are obtained through the brain both before and after the intravenous administra tion of gadolinium contrast. Ventricles and other CSF containing spaces are normal and symmetric. There is no mass, hemorrhage or midline shift. The posterior fossa is unremarkable. Visualized portions of the clivus are unremarkabl e. Midline structures and cerebellopontine angles are unremarkable. Intraorbital structures are unrem arkable. Limited evaluation of the internal auditory canals is normal. There is a large amount of mucoperiosteal thickening throughout the paranasal sinuses to include some fluid within Impression: Severe paranasal sinusitis. No acute intracranial pathology.
== END 2017-01-14 18:32 | disposition home or self-care (01) ==
LOC: ER 14:19
DX: J01.90 Acute sinusitis, unspecified (principal); R42 Dizziness and giddiness; W17.89XA Other fall from one level to another, initial encounter
CPT/HCPCS: 70553; 80053; 81003; 83735; 84443; 85025; 86140; 96361; 96374; 99283; J2405; J7030